=== PATIENT | female | born 2005 | race Caucasian/White ===

== ENCOUNTER 2024-08-06 16:56 | Emergency (ER) | payer BC ==
[~2024-08-06] VITALS: Ht 167.6 cm; Wt 54.5 kg
[2024-08-06 16:58] VITALS: BP 119/80
[2024-08-06] MEDS: LORazepam 1 MG tablet PO ONE (17:12)
[2024-08-06] MEDS ORDERED: LORA-268 PO (18:02)
[2024-08-06] MEDS ORDERED: HYDR-3686 PO (18:02)
[2024-08-06 18:10] VITALS: PULSE 87; RESP 16; TEMP 97.7; O2SAT 99
== END 2024-08-06 18:11 | disposition home or self-care (01) ==
LOC: ER 16:58
DX: F41.0 Panic disorder [episodic paroxysmal anxiety] (principal)
CPT/HCPCS: 99283

== ENCOUNTER 2024-10-31 17:01 | Emergency (ER) | payer BC, OTHER ==
[~2024-10-31] VITALS: Ht 167.6 cm; Wt 56.0 kg
[~2024-10-31 17:01] MED LIST: LORA-268 PO
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
[2024-10-31] MEDS: dexamethasone sod phosphate 10mg/ml inj PO STA (17:58)
[2024-10-31] MEDS: ipratropium/albuterol 3ml nebule NEB ONE (18:00)
[2024-10-31] MEDS ORDERED: ALBU8HFA INH (18:02)
[2024-10-31 18:05] VITALS: PULSE 70; RESP 18; O2SAT 100
[2024-10-31 18:09] VITALS: PULSE 79; RESP 16; O2SAT 100
[2024-10-31 18:53] VITALS: BP 120/86; PULSE 80; RESP 18; TEMP 98.6; O2SAT 99
== END 2024-10-31 18:54 | disposition home or self-care (01) ==
LOC: ER 17:01
DX: J45.909 Unspecified asthma, uncomplicated (principal)
CPT/HCPCS: 94640; 99283; J1100; 94760